=== PATIENT | male | born 1970 | race Caucasian/White ===

== ENCOUNTER 2017-08-12 07:39 | Outpatient (CLI) | payer BC ==
[2017-08-12 10:38] LABS: ALBUMIN 4.2 g/dL (3.2-5.5); ALBUMIN/GLOBULIN RATIO 1.5 (1.0-2.2); ALKALINE PHOSPHATASE 30 IU/L (42-121); ALT ALANINE AMINOTRANSFERASE 20 IU/L (10-60); AST ASPARTATE AMINOTRANSFERASE 19 IU/L (10-42); BILIRUBIN,TOTAL 0.9 mg/dL (0.2-1.0); BUN - BLOOD UREA NITROGEN 14 mg/dL (6-20); CALCIUM 9.2 mg/dL (8.5-10.3); CARBON DIOXIDE - CO2 30 mmol/L (21-32); CHLORIDE 104 mmol/L (101-111); CHOL/HDL RATIO 3.4 (<5.0); CHOLESTEROL 267 mg/dL; CREATININE 0.7 mg/dL (0.6-1.2); GFR - MDRD 121 (>89); GLUCOSE 96 mg/dL (70-100); HDL CHOLESTEROL 78 mg/dL; LDL CHOLESTEROL,CALCULATED 168 mg/dL; LDL/HDL RATIO 2.2 (<3.6); SODIUM 140 mmol/L (135-145); VLDL CHOLESTEROL 21 mg/dL
== END 2017-08-12 07:40 | disposition home or self-care (01) ==
LOC: LAB.F 07:39
PROVIDERS: ATTEND Family Medicine
DX: I10 Essential (primary) hypertension (principal); E78.5 Hyperlipidemia, unspecified
CPT/HCPCS: 36415; 80053; 80061; 83721

== ENCOUNTER 2017-08-18 12:42 | Outpatient (CLI) | payer BC ==
--- NOTE | 2017-08-18 14:56 | XRAY Report ---
THREE VIEW LEFT ANKLE: 08/18/2017 CLINICAL INDICATION: Arthritis. FINDINGS: AP, lateral, oblique views of the left ankle demonstrate minimal degenerative changes. There is no evidence of fracture or dislocation. No effusion is present. IMPRESSION: MINIMAL OSTEOARTHRITIS. TD: 08/18/2017 14:55
== END 2017-08-18 12:43 | disposition home or self-care (01) ==
LOC: DI 12:42
PROVIDERS: ATTEND Specialist
DX: M19.072 Primary osteoarthritis, left ankle and foot (principal)

== ENCOUNTER 2020-11-22 08:44 | Outpatient (CLI) | payer BC ==
--- NOTE | 2020-11-22 09:17 | CT Report ---
PROCEDURE: HEAD WO INDICATIONS: NEW DAILY PERSISTENT HEADACHE TECHNIQUE: Noncontrast 4.5 mm thick angled axial sections acquired from the foramen magnum to the vertex. For r adiation dose reduction, the following was used: automated exposure control, adjustment of mA and/or kV according to patient size. COMPARISON: None. FINDINGS: Image quality: There is streak artifact seen through the skull base. CSF spaces: Basal cisterns are patent. No extra-axial fluid collections. Ventricles are normal in size and shape. Brain: No midline shift. No intracranial masses or hemorrhage. Barron-white matter interface is norm al. Skull and face: Calvarium and visualized facial bones are intact, without suspicious lesions. Sinuses: Visualized sinuses and mastoids are clear. IMPRESSION: A cause of headache cannot be seen on these images. No intracranial hemorrhage is seen. Negative for calvarial fracture. Reviewed by: Chris Sorto MD on 11/22/2020 8:15 AM SILVA Approved by: Chris Sorto MD on 11/22/2020 8:15 AM SILVA Station ID: [id number]
== END 2020-11-22 08:45 | disposition home or self-care (01) ==
LOC: DI 08:44
PROVIDERS: ATTEND Nurse Practitioner Family
DX: Z13.6 Encounter for screening for cardiovascular disorders (principal); G44.52 New daily persistent headache (NDPH)

== ENCOUNTER 2020-11-22 08:46 | Outpatient (CLI) | payer BC ==
--- NOTE | 2020-11-22 10:22 | CARDIAC PROCEDURE NOTE ---
Stress Test Report Service Date: 11/22/20 Ordering Provider: Anusha Castañeda NP Indication for Test: Screening for cardiovascular system disease Cardiac Risk Factors: Male gender, hyperlipidemia. Type of Stress Test: Exercise Treadmill Test (ETT) Procedure: After signing informed consent, the patient underwent a Gonzalo-protocol treadmill stress test. No cardiac imaging was ordered with this test. Resting heart rate: 55 Peak HR: 148 (86% predicted maximal heart rate for age) Resting blood pressure: 105/72 Peak BP: 182/64 The patient exercised for 13 minutes and 58 seconds on a Gonzalo-protocol treadmill stress test. He achieved a peak heart rate of 148 (86% PMHR), and achieved 14.83 METS. Patient had mild-moderate shortness of breath at peak, had no chest pain and rated his perceived exertion at 16/20 on the Tomas scale at peak. Oxygen saturation was 95 to 98% on room air throughout the test. Resting EKG: Sinus bradycardia, rate 55, IVCD, otherwise WNL. EKG at peak: No ischemic ST-segment or T-wave changes. Summary: 1) Borderline normal resting EKG. 2) Excellent exercise tolerance. 3) No ischemic changes develop by EKG criteria at an good level of stress. IMPRESSION: 1) Normal stress test. 2) Excellent exercise tolerance. 3) This patient's cardiac risk: Low.
== END 2020-11-22 08:47 | disposition home or self-care (01) ==
LOC: DI 08:46
PROVIDERS: ATTEND Nurse Practitioner Family
DX: Z13.6 Encounter for screening for cardiovascular disorders (principal); E78.5 Hyperlipidemia, unspecified; G44.52 New daily persistent headache (NDPH)

== ENCOUNTER 2023-07-09 10:58 | Outpatient (CLI) | payer BC ==
--- NOTE | 2023-07-09 13:34 | CT Report ---
PROCEDURE: Lung Cancer Screen INDICATIONS: LUNG CA SCREENING TECHNIQUE: A CT scan of the chest was performed. Intravenous contrast media was not administered. Images were re corded and evaluated at appropriate window settings. Reformats: axial MIP of the chest, coronal and s agittal. For radiation dose reduction, the following was used: automated exposure control, adjustment of mA and/or kV according to patient size. COMPARISON: None. FINDINGS: Image quality: Excellent. Prior cancer history: None known Lungs and pleura: No pleural effusions. No pneumothorax. Minimal atelectatic changes in the bases. M inimal emphysematous lung changes. Closely grouped 1 to 2 mm right upper lobe solid nodules (21/4) 2 mm solid right upper lobe juxtapleural nodule (32/4) Mediastinum: Heart size is normal. No pericardial effusion. No large vessel abnormality. No mediastin al adenopathy by size criteria. Chest wall and lower neck: Thyroid is unremarkable. No axillary or supraclavicular adenopathy by size . Bones: No aggressive osseous abnormality. Upper Abdomen: Unremarkable. IMPRESSION: Lung RAD: LUNG RADS 2, BENIGN. Recommendation: Follow-up low-dose CT in 1 year is from his criteria Non-Lung Significant Findings: . Small hiatal hernia Reviewed by: Tito Ramirez MD on 07/09/2023 1:33 PM PST Approved by: Tito Ramirez MD on 07/09/2023 1:33 PM PST Station ID: [id number]
== END 2023-07-09 10:59 | disposition home or self-care (01) ==
LOC: DI 10:58
PROVIDERS: ATTEND Nurse Practitioner Family
DX: Z12.2 Encounter for screening for malignant neoplasm of respiratory organs (principal); Z87.891 Personal history of nicotine dependence; K44.9 Diaphragmatic hernia without obstruction or gangrene; J98.11 Atelectasis; J43.9 Emphysema, unspecified; R91.8 Other nonspecific abnormal finding of lung field